=== PATIENT | female | born 1955 | race American Indian/Alaskan Native ===

== ENCOUNTER 2016-11-06 07:26 | Day surgery (SDC) | payer MEDICAID ==
[~2016-11-06 07:26] MED LIST: Lactated Ringers 1,000 ML IV SCH; Sodium Chloride 0.9% 10 ML Syringe FLUSH PRN; ceFAZolin 1 GM in Premix Bag 1 BAG IV ONE
[2016-11-06] MEDS ORDERED: Lidocaine 1% 30 ML SDV ONE (07:51)
[2016-11-06] MEDS ORDERED: Bupivacaine 0.5% 10 ML SDV ONE (07:51)
[2016-11-06] MEDS ORDERED: Lidocaine 1% 30 ML SDV INJECT ONE ×3 (08:30→14:46)
[2016-11-06] MEDS ORDERED: Bupivacaine 0.5% 10 ML SDV INJECT ONE ×3 (08:30→14:46)
[2016-11-06] MEDS ORDERED: Acetaminophen/oxyCODONE 325-5 MG Tab PO PRN (10:08)
--- NOTE | 2016-11-06 10:12 | PCM.OPNOTE ---
- General Post-Op/Procedure Note Date of Surgery/Procedure: 11/06/16 Operative Procedure(s): left foot 2nd and 3rd digit PIPJ arthrodesis with pinning Pre Op Diagnosis: left foot painful hammertoes 2nd and 3rd digits Post-Op Diagnosis: kan Anesthesia Technique: Local, MAC Primary Surgeon: Piper Winters Yadav Anesthesia Provider: Denise Bright EBL in mLs: 5 Complications: none Condition: Good Free Text/Narrative:: Pt tolerated procedure well and was transported to pacu with vss and vascular status intact to left foot as noted by hyperemia to digits upon deflation of tourniquet. TT 78 mins. 0.062 inch k wires to toes 2 and 3. Well padded dressing applied.
[2016-11-06 11:13] VITALS: BP 112/46
[2016-11-06] MEDS ORDERED: Lidocaine 2% 20 ML MDV INJECT ONE (11:39)
[2016-11-06] MEDS ORDERED: fentaNYL 100 MCG/2 ML SDV IV ONE (11:39)
[2016-11-06] MEDS ORDERED: Ondansetron 4 MG/2 ML SDV IV ONE (11:39)
[2016-11-06] MEDS ORDERED: Propofol 200 MG/20 ML SDV IV ONE (11:39)
[2016-11-06] MEDS ORDERED: Midazolam 1 MG/ML 2 ML SDV IV ONE (11:39)
[2016-11-06] MEDS ORDERED: Ketorolac 30 MG/ML SDV IVPUSH ONE (11:39)
--- NOTE | 2016-11-06 14:22 | OR ---
DATE: 11/06/2016 PREOPERATIVE DIAGNOSIS: Left foot painful hammertoes of the 2nd and 3rd digits. POSTOPERATIVE DIAGNOSIS: Left foot painful hammertoes of the 2nd and 3rd digits. PROCEDURE PERFORMED: Left foot 2nd and 3rd digits proximal interphalangeal joint arthrodesis with pinning. ANESTHESIA: Local MAC with preoperative local block of 10 mL 1:1 mixture 1% lidocaine plain and 0.5% Marcaine plain. TOURNIQUET TIME: 78 minutes, pneumatic ankle tourniquet. ESTIMATED BLOOD LOSS: Minimal. SPECIMEN: None. COMPLICATIONS: None. INDICATIONS: Tika is a 61-year-old female, who presents for left foot pain. I have been seeing her every few months for the pain to the left 2nd and 3rd toes. She states the pain is worse when her feet are cold or when she is walking or standing. She had surgery on her toes few years back at a different clinic and they are now starting to become painful again. She would like to do a second surgery on these toes to fix them. The pain is nonradiating at the top of her foot, the 2nd and 3rd toes, and they are swollen. She rates the pain at 7/10 at worst. X-rays, 3-views of the left foot, reveals arthroplasty of the distal ends of the proximal phalanx 2 and 3, no signs of fracture. The patient voiced good understanding of proposed procedure and possible complications, and elects to have surgery at this time. DESCRIPTION OF PROCEDURE: The patient was taken to the operating room, lying in the supine position. After adequate anesthesia induction as described above, the left foot was prepped and draped in usual sterile fashion. A pneumatic ankle tourniquet was inflated to 225 mmHg. Attention was then directed to the dorsal aspect of the 2nd and 3rd digits, where a linear incision was made, centered dorsally over the proximal interphalangeal joint. Sharp and blunt dissection was performed down to the level of the extensor tendons. A transverse tenotomy capsulotomy of the proximal interphalangeal joints of the 2nd and 3rd digits were made. The extensor tendon was reflected proximally and the soft tissue removed sharply to expose the head of the proximal phalanx. It was noted that there was some fibrosis in this area from her prior surgeries that was cleaned out. A sagittal saw was then used to shape the head of the proximal phalanx in a cone fashion to remove the articular surface. A bur was used to create a cup in the base of the intermediate phalanx. At this time, a 0.062 inch K-wire was inserted from proximal to distal, exiting the digit distally. The digit was then placed in a straight alignment and the K-wire was retrograded through the proximal phalanx. The digits were noted to be near anatomic alignment at this time. Fluoroscopy was used to verify adequate fixation with the K-wires and also proper positioning of the toes. This was done on both the 2nd and 3rd digits. All areas were then irrigated with copious amounts of sterile saline. The tendons were repaired with 3-0 Vicryl and skin closure was completed with 4-0 nylon. The foot was then dressed with Xeroform to the incision sites, fluffs, Webril, and Nate wrap. The patient tolerated the procedure well and left the operating room for recovery with vital signs stable and in good condition with vascular status intact to the left foot as noted by immediate hyperemia to all digits upon deflation of the ankle tourniquet. Tourniquet time was 78 minutes. She will be placed in a boot and crutches, nonweightbearing. She was discharged home when she met hospital discharge requirements. [facility] /[id number]
== END 2016-11-06 11:30 | disposition home or self-care (01) ==
LOC: DL.SDS 07:26
PROVIDERS: ATTEND Podiatrist
DX: M20.42 Other hammer toe(s) (acquired), left foot (principal); D64.9 Anemia, unspecified; Z88.1 Allergy status to other antibiotic agents; Z90.710 Acquired absence of both cervix and uterus; Z98.890 Other specified postprocedural states; Z79.899 Other long term (current) drug therapy
CPT/HCPCS: 26860; 26861; J0690; J7120; J1885; J2250; J2405; J2704; J3010

== ENCOUNTER 2018-12-02 07:06 | Day surgery (SDC) | payer MEDICAID ==
[~2018-12-02 07:06] MED LIST changes: +Bupivacaine 0.5% 30 ML SDV ONE; -Lactated Ringers 1,000 ML IV SCH; +Lidocaine 1% 30 ML SDV ONE; -Sodium Chloride 0.9% 10 ML Syringe FLUSH PRN; -ceFAZolin 1 GM in Premix Bag 1 BAG IV ONE
[2018-12-02] MEDS ORDERED: Bupivacaine 0.5% 30 ML SDV INJECT ONE ×4 (07:07→09:37)
[2018-12-02] MEDS ORDERED: Ketorolac 30 MG/ML SDV IVPUSH ONE (07:07)
[2018-12-02] MEDS ORDERED: Ondansetron 4 MG/2 ML SDV IV ONE (07:07)
[2018-12-02] MEDS ORDERED: Lidocaine 1% 30 ML SDV INJECT ONE ×4 (07:07→09:37)
[2018-12-02] MEDS ORDERED: Midazolam 1 MG/ML 2 ML SDV IV ONE (07:07)
[2018-12-02] MEDS ORDERED: Propofol 200 MG/20 ML SDV IV ONE (07:07)
[2018-12-02] MEDS ORDERED: fentaNYL 100 MCG/2 ML SDV IV ONE (07:07)
[2018-12-02] MEDS ORDERED: Sodium Chloride 0.9% 10 ML Syringe FLUSH PRN ×2 (08:00)
[2018-12-02] MEDS ORDERED: Lactated Ringers 1,000 ML IV SCH (08:00)
[2018-12-02] MEDS ORDERED: ceFAZolin 1 GM in Premix Bag 1 BAG IV ONE (08:00)
[2018-12-02] MEDS ORDERED: Acetaminophen/oxyCODONE 325-5 MG Tab PO PRN (10:14)
--- NOTE | 2018-12-02 10:20 | PCM.OPNOTE ---
- General Post-Op/Procedure Note Date of Surgery/Procedure: 12/02/18 Operative Procedure(s): left foot 4th toe hammertoe arthrodesis with smart toe implant, extensor tendon lengthening digits 2 and 3. Pre Op Diagnosis: left foot painful hammertoe 4, dorsiflexed digits 2 and 3. Post-Op Diagnosis: kan Anesthesia Technique: Local, MAC Primary Surgeon: Piper Yadav Anesthesia Provider: Gorge Davidson EBL in mLs: 5 Complications: none Condition: Good Free Text/Narrative:: Pt tolerated procedure well and was transported to recovery with vascular status intact to left foot. smart toe size 14 10 degree was implanted to 4th toe. Well padded compression dressing applied.
[2018-12-02 12:09] VITALS: BP 83/42; PULSE 70
--- NOTE | 2018-12-03 17:14 | OR ---
DATE: 12/02/2018 PREOPERATIVE DIAGNOSES: 1. Left foot 4th digit hammertoe. 2. Left foot 2nd and 3rd digit dorsiflexed digits. POSTOPERATIVE DIAGNOSES: 1. Left foot 4th digit hammertoe. 2. Left foot 2nd and 3rd digit dorsiflexed digits. PROCEDURE PERFORMED: 1. Left foot 4th digit proximal interphalangeal joint arthrodesis with Smart Toe implant. 2. 2nd and 3rd digit extensor tendon lengthening, left foot ANESTHESIA: Local MAC with preoperative local block of 10 mL of 1:1 mixture of 1% lidocaine plain and 0.5% Marcaine plain. ESTIMATED BLOOD LOSS: Minimal. SPECIMEN: None. COMPLICATIONS: None. INDICATIONS: Tika is a 63-year-old female, who presents with a painful 4th hammertoe. She has history of hammertoe corrections of her 2nd and 3rd toes, which are slightly tight, these do not bother her, but the 4th toe now under- rides her other toes and starting to curve inwards. This bothers her whenever she is walking on her shoes. We have tried multiple different toe spacers and cushions with no relief. X-rays of the left foot reveals 2nd and 3rd digit hammertoe correction, 4th digit hammertoe/adductovarus digit. The patient voiced good understanding of proposed procedure and possible complications and elects to have surgery at this time. DESCRIPTION OF PROCEDURE: The patient was taken to the operating room lying in supine position. After adequate anesthesia induction as described above, the left foot was prepped and draped in the usual sterile fashion. A pneumatic ankle tourniquet was inflated to 225 mmHg. Attention was then directed to the dorsal aspect of the left foot overlying the 4th digit proximal interphalangeal joint where a 2 cm linear incision was made overlying the joint. Sharp and blunt dissection was performed down to the level of the joint. A tenotomy capsulotomy was made with a #15 blade and the head of the proximal phalanx was exposed. A sagittal saw was used to remove the proximal phalanx head. It was then also used to remove the base of the middle phalanx. The toe was noted to be in rectus position with good alignment of the joint, a Smart Toe implant size 14, 10-degree angle was then inserted across the proximal interphalangeal joint for arthrodesis. Fluoroscopy was used to verify proper positioning of the implant and also of the joint. Good compression was noted. The toe was noted to be in a rectus alignment at this time. The 2nd and 3rd digits were slightly dorsiflexed, and so at this time attention was directed to the 2nd and 3rd extensor tendons, there was a 2 cm linear incision made overlying each tendon. Sharp and blunt dissection was performed down to the level of extensor tendon of both 2nd and 3rd digits. A Z-lengthening was performed on both tendons and the 2nd and 3rd toes were noted to be in a good alignment with good position of the tendons. The tendons were fixated with 3-0 Vicryl. All areas were irrigated with copious amounts of sterile saline. Deep closure was completed with 3-0 Vicryl and skin closure was completed with 4-0 nylon. The area was then dressed with Xeroform to the incision site, fluffs, Webril, and an Nate wrap. She will be nonweightbearing. The patient tolerated anesthesia and procedure well, was transferred to recovery room with vital signs stable in good condition with vascular status intact as noted by immediate hyperemia to all digits upon deflation of the ankle tourniquet. She was then discharged home when she met hospital discharge requirements. [facility] /[id number] RENE
== END 2018-12-02 12:16 | disposition home or self-care (01) ==
LOC: DL.SDS 07:06
PROVIDERS: ATTEND Podiatrist
DX: M20.42 Other hammer toe(s) (acquired), left foot (principal); M21.272 Flexion deformity, left ankle and toes; Z88.1 Allergy status to other antibiotic agents
CPT/HCPCS: 28285; 28313; C1776; J0690; J1885; J2001; J2250; J2405; J2704; J3010; J3490; J7120

== ENCOUNTER 2019-06-20 17:09 | Emergency (ER) | payer MEDICAID ==
[2019-06-20] MEDS ORDERED: Ondansetron 4 MG/2 ML SDV IV ONE (17:18)
[2019-06-20] MEDS ORDERED: Sodium Chloride 0.9% 1,000 ML IV ONE (17:18)
[2019-06-20] MEDS ORDERED: HYDROmorphone 1 MG/ML Syringe IVPUSH ONE (17:18)
[2019-06-20] MEDS ORDERED: Sodium Chloride 0.9% 10 ML Syringe FLUSH PRN (17:18)
[2019-06-20] MEDS ORDERED: Piperacillin/Tazobactam 3.375 GM in Sodium Chloride 0.9% 100 ML IV ONE (17:19)
[2019-06-20 17:22] VITALS: BP 104/51; PULSE 95
--- NOTE | 2019-06-20 18:36 | EDM.PDOC ---
Scribed by Kassy Mccann 06/20/19 [id number] for Richard Johnson MD ED HPI GENERAL MEDICAL PROBLEM - General Chief Complaint: Abdominal Pain Stated Complaint: ADOMINAL PAIN ON THE RIGHT SIDE Time Seen by Provider: 06/20/19 17:15 Source of Information: Reports: Patient, Provider (Yannick Powers NP), RN, RN Notes Reviewed History Limitations: Reports: No Limitations - History of Present Illness INITIAL COMMENTS - FREE TEXT/NARRATIVE: Patient sent to ER from [facility] by Yannick Powers NP for a gallbladder evaluation due to abdominal pain at the RUQ for couple of days. Pt admits to some on/off RUQ pain or discomfort for a couple of weeks. She states threw up bile looking (yellow material) yesterday. Patient states no problems with gallbladder in past that she is aware of. Denies dysuria, diarrhea, or constipation. Yannick Powers NP called from clinic to report that she believes the pt has a "hot gallbladder" based on Hx, exam, WBC elev. to 13.65, T-bili 1.1 with RUQ pain w/ nausea and vomiting. The clinic did not have US available. Yannick Shall states she called [facility] for a direct admission/transfer but it was determined that the pt should be worked up in the ER then transferred if needed. Onset: Gradual Duration: Constant Location: Reports: Abdomen Quality: Reports: Ache Severity: Moderate Improves with: Reports: None Worsens with: Reports: None Associated Symptoms: Reports: No Other Symptoms Abdominal Pain Score (Numeric/FACES): 8 - Related Data Allergies Allergy/AdvReac Type Severity Reaction Status Date / Time clindamycin Allergy Cannot Verified 06/20/19 17:22 Remember Home Meds: Home Meds Cyanocobalamin (Vitamin B-12) [Cyanocobalamin Injection] 1,000 mcg INJECT .[id number] 11/05/16 [History] oxyCODONE HCl/Acetaminophen [Percocet 10-325 mg Tablet] 1 tab PO Q8H 11/05/16 [ History] Ciclopirox/Ure/Camph/Menth/Euc [Ciclopirox 8% Treatment Kit] 1 applic TOP ASDIRECTED 12/01/18 [History] Clotrimazole/Betamethasone Dip [Lotrisone Cream] 1 applic TOP ASDIRECTED [History] Gabapentin [Neurontin] 300 - 600 mg PO DAILY PRN 12/01/18 [History] Past Medical History - Past Health History Medical/Surgical History: Denies Medical/Surgical History HEENT History: Reports: Impaired Vision, Other (See Below) (dental abscess) Cardiovascular History: Reports: None Respiratory History: Reports: Sleep Apnea Gastrointestinal History: Reports: Diverticulosis, GERD, GI Bleed, Hemorrhoids, Hiatal Hernia, Other (See Below) Other Gastrointestinal History: DIVERTICULITIS Genitourinary History: Reports: None [employer] History: Reports: Musculoskeletal History: Reports: None Neurological History: Reports: None Psychiatric History: Reports: None Endocrine/Metabolic History: Reports: Hypothyroidism Hematologic History: Reports: Anemia, B12 Deficiency Immunologic History: Reports: None Oncologic (Cancer) History: Reports: None Dermatologic History: Reports: None - Infectious Disease History Infectious Disease History: Reports: Chicken Pox - Past Surgical History Head Surgeries/Procedures: Reports: None HEENT Surgical History: Reports: None Cardiovascular Surgical History: Reports: None Respiratory Surgical History: Reports: None GI Surgical History: Reports: Colonoscopy, EGD Female Surgical History: Reports: Section, D&C, Hysterectomy Endocrine Surgical History: Reports: None Neurological Surgical History: Reports: None Musculoskeletal Surgical History: Reports: Other (See Below) Other Musculoskeletal Surgeries/Procedures:: toe surg. LEFT FOOT REVISIONAL 2 & 3 AND, PROXIMAL INTERPHALANGEAL JOINT ARTHRODESIS WITH PINNING Oncologic Surgical History: Reports: None Dermatological Surgical History: Reports: None Social & Family History - Family History Family Medical History: Noncontributory HEENT: Reports: Cataract Cardiac: Reports: None Respiratory: Reports: None GI: Reports: None : Reports: Nephritic Syndrome OBGYN: Reports: None Musculoskeletal: Reports: Arthritis Neurological: Reports: None Psychiatric: Reports: Bipolar Endocrine/Metabolic: Reports: Diabetes, type II Hematologic: Reports: B12 Deficiency Immunologic: Reports: None Dermatologic: Reports: None - Caffeine Use Caffeine Use: Reports: Coffee, Soda, Tea Other Caffeine Use: AVERAGE OF 1 CUP COFFEE DAILY. AVERAGE OF 2 CANS OF COCOA COLA DAILY - Living Situation & Occupation Living situation: Reports: with Family ED ROS GENERAL - Review of Systems Review Of Systems: ROS reveals no pertinent complaints other than HPI. ED EXAM, GI/ABD - Physical Exam Exam: See Below Exam Limited By: No Limitations General Appearance: Alert, WD/WN, No Apparent Distress, Thin Eyes: Bilateral: Normal Appearance (No scleral icterus) Nose: Normal Inspection Throat/Mouth: Normal Voice, No Airway Compromise Head: Atraumatic, Normocephalic Neck: Normal Inspection Respiratory/Chest: No Respiratory Distress, Lungs Clear, Normal Breath Sounds, No Accessory Muscle Use, Chest Non-Tender Cardiovascular: Regular Rate, Rhythm, No Edema GI/Abdominal Exam: Normal Bowel Sounds, Soft, No Distention, Tender (RUQ). No: Guarding, Rigid, Rebound Back Exam: Normal Inspection. No: CVA Tenderness (L), CVA Tenderness (R) Extremities: Normal Inspection Neurological: Alert, Oriented, CN II-XII Intact, Normal Cognition, No Motor/ Sensory Deficits Psychiatric: Normal Mood Course - Vital Signs Last Recorded V/S: Last Vital Signs Temp 98.2 F 06/20/19 17:17 Pulse 95 06/20/19 17:17 Resp 16 06/20/19 17:17 BP 104/51 L 06/20/19 17:17 Pulse Ox 100 06/20/19 17:17 - Orders/Labs/Meds Orders: Active Orders 24 hr Category Date Time Status Peripheral IV Care [RC] . DIRECTED Care 06/20/19 17:19 Active Abdomen Ltd [US] Stat Exams 06/20/19 17:22 Ordered Sodium Chloride 0.9% [Saline Flush] Med 06/20/19 17:18 Active 10 ml FLUSH ASDIRECTED PRN Peripheral IV Insertion Adult [OM.PC] Stat Oth 06/20/19 17:18 Ordered Medication Orders Sodium Chloride (Saline Flush) 10 ml FLUSH ASDIRECTED PRN PRN Reason: Keep Vein Open Last Admin: 06/20/19 17:49 Dose: 10 ml Meds: Medications Generic Name Dose Route Start Last Admin Trade Name Freq PRN Reason Stop Dose Admin Sodium Chloride 10 ml 06/20/19 17:18 06/20/19 17:49 Saline Flush FLUSH 10 ml ASDIRECTED PRN Administration Keep Vein Open Discontinued Medications Generic Name Dose Route Start Last Admin Trade Name Freq PRN Reason Stop Dose Admin Hydromorphone HCl 0.5 mg 06/20/19 17:18 06/20/19 17:52 Dilaudid IVPUSH 06/20/19 17:19 0.5 mg ONETIME ONE Administration Piperacillin Sod/Tazobactam 100 mls @ 200 mls/hr 06/20/19 17:19 06/20/19 17: 53 Sod 3.375 gm/ Sodium Chloride IV 06/20/19 17:48 200 mls/hr ONETIME ONE Administration Sodium Chloride 1,000 mls @ 999 mls/hr 06/20/19 17:18 06/20/19 17:48 Normal Saline IV 06/20/19 18:18 999 mls/hr .BOLUS ONE Administration Ondansetron HCl 4 mg 06/20/19 17:18 06/20/19 17:49 Zofran IV 06/20/19 17:19 4 mg ONETIME ONE Administration - Radiology Interpretation Free Text/Narrative:: US Tech report: thickened GB wall with pericholeic fluid consistent with cholecystitis. Departure - Departure Time of Disposition: 18:35 Disposition: DC/Tfer to [facility] 02 Condition: Serious Clinical Impression: Cholecystitis - Discharge Information *PRESCRIPTION DRUG MONITORING PROGRAM REVIEWED*: No *COPY OF PRESCRIPTION DRUG MONITORING REPORT IN PATIENT MARISEL: No Forms: ED Department Discharge, Interfacility Transfer EMTALA - My Orders Last 24 Hours: My Active Orders 06/20/19 17:18 Sodium Chloride 0.9% [Saline Flush] 10 ml FLUSH ASDIRECTED PRN Peripheral IV Insertion Adult [OM.PC] Stat 06/20/19 17:19 Peripheral IV Care [RC] . DIRECTED 06/20/19 17:22 Abdomen Ltd [US] Stat - Assessment/Plan Last 24 Hours: My Active Orders 06/20/19 17:18 Sodium Chloride 0.9% [Saline Flush] 10 ml FLUSH ASDIRECTED PRN Peripheral IV Insertion Adult [OM.PC] Stat 06/20/19 17:19 Peripheral IV Care [RC] . DIRECTED 06/20/19 17:22 Abdomen Ltd [US] Stat I have read and agree with the documentation that has been completed regarding this visit. By signing this record, I attest that the documentation was completed in my physical presence and is an accurate record of the encounter.
== END 2019-06-20 19:13 ==
LOC: DL.ED 17:09
DX: K81.9 Cholecystitis, unspecified (principal); Z88.1 Allergy status to other antibiotic agents
CPT/HCPCS: 76705; 96361; 96365; 96375; 99285; J1170; J2405; J2543; J7030; J7050

== ENCOUNTER 2021-03-04 17:20 | Emergency (ER) | payer MEDICAID ==
[2021-03-04 17:53] VITALS: BP 99/53; PULSE 66
--- NOTE | 2021-03-04 18:10 | EDM.PDOC ---
<Catherine Aviles - Last Filed: 03/05/21 05:41> ED HPI GENERAL MEDICAL PROBLEM - General Chief Complaint: Abdominal Pain Stated Complaint: PAIN IN LEFT SIDE / PER BARATH Time Seen by Provider: 03/04/21 18:09 - Related Data Allergies Allergy/AdvReac Type Severity Reaction Status Date / Time clindamycin Allergy Cannot Verified 03/04/21 17:43 Remember Home Meds: Home Meds Cyanocobalamin (Vitamin B-12) [Cyanocobalamin Injection] 1,000 mcg INJECT .[id number] 11/05/16 [History] Gabapentin [Neurontin] 300 - 600 mg PO DAILY PRN 12/01/18 [History] Course - Re-Assessments/Exams Free Text/Narrative Re-Assessment/Exam: 03/05/21 05:37 Left AMA while awaiting lab results Departure - Departure Time of Disposition: 20:50 Disposition: Against Medical Advice 07 Condition: Undetermined Clinical Impression: Methamphetamine abuse, LUQ pain UTI (urinary tract infection) Qualifiers: Urinary tract infection type: acute cystitis Hematuria presence: without hematuria Qualified Code(s): N30.00 - Acute cystitis without hematuria - Discharge Information *PRESCRIPTION DRUG MONITORING PROGRAM REVIEWED*: No *COPY OF PRESCRIPTION DRUG MONITORING REPORT IN PATIENT MARISEL: No Referrals: PCP,None [Primary Care Provider] - Forms: ED Department Discharge <Sonali Valdez - Last Filed: 03/05/21 09:27> ED HPI GENERAL MEDICAL PROBLEM - General Source of Information: Reports: Patient, Provider (Dr. Duenas), RN, RN Notes Reviewed History Limitations: Reports: No Limitations - History of Present Illness INITIAL COMMENTS - FREE TEXT/NARRATIVE: Tika is a 66 y/o female who presents to the ED from her primary care facility, at the request of Dr. Zelaya, for complaints of LUQ pain. The patient reports her pain began five days ago; she notes it was the worst two days ago, but has somewhat improved. She notes the pain causes her to feel short of breath, at times. The patient received her first COVID vaccine six days ago and is concerned there is a correlation. She denies fever, shaking chills, chest pain, palpitations, nausea, vomiting, dysuria, hematuria, melena, or hematochezia. Her last bowel movement was last night. Her last meal was this morning. She has not taken any medications for her pains. 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: Musculoskeletal History: Reports: None Neurological History: Reports: None Psychiatric History: Reports: None Endocrine/Metabolic History: Reports: Hypothyroidism Hematologic History: Reports: Anemia, B12 Deficiency Immunologic History: Reports: None Oncologic (Cancer) History: Reports: None Dermatologic History: Reports: None - Infectious Disease History Infectious Disease History: Reports: Chicken Pox - Past Surgical History Head Surgeries/Procedures: Reports: None HEENT Surgical History: Reports: None Cardiovascular Surgical History: Reports: None Respiratory Surgical History: Reports: None GI Surgical History: Reports: Colonoscopy, EGD Female Surgical History: Reports: Section, D&C, Hysterectomy Endocrine Surgical History: Reports: None Neurological Surgical History: Reports: None Musculoskeletal Surgical History: Reports: Other (See Below) Other Musculoskeletal Surgeries/Procedures:: toe surg. LEFT FOOT REVISIONAL 2 & 3 AND, PROXIMAL INTERPHALANGEAL JOINT ARTHRODESIS WITH PINNING Oncologic Surgical History: Reports: None Dermatological Surgical History: Reports: None Social & Family History - Family History Family Medical History: No Pertinent Family History HEENT: Reports: Cataract Cardiac: Reports: None Respiratory: Reports: None GI: Reports: None : Reports: Nephritic Syndrome OBGYN: Reports: None Musculoskeletal: Reports: Arthritis Neurological: Reports: None Psychiatric: Reports: Bipolar Endocrine/Metabolic: Reports: Diabetes, type II Hematologic: Reports: B12 Deficiency Immunologic: Reports: None Dermatologic: Reports: None - Caffeine Use Caffeine Use: Reports: Coffee, Soda, Tea Other Caffeine Use: AVERAGE OF 1 CUP COFFEE DAILY. AVERAGE OF 2 CANS OF COCOA COLA DAILY - Living Situation & Occupation Living situation: Reports: with Family ED ROS GENERAL - Review of Systems Review Of Systems: Comprehensive ROS is negative, except as noted in HPI. ED EXAM, GI/ABD - Physical Exam Exam: See Below Exam Limited By: No Limitations General Appearance: Alert, No Apparent Distress Eyes: Bilateral: Normal Appearance, EOMI Ears: Normal External Exam, Hearing Grossly Normal Nose: Normal Inspection, Normal Mucosa, No Blood Throat/Mouth: Normal Inspection, Normal Lips, Normal Teeth, Normal Gums, Normal Oropharynx, Normal Voice, No Airway Compromise Head: Atraumatic, Normocephalic Neck: Normal Inspection, Supple, Non-Tender, Full Range of Motion Respiratory/Chest: No Respiratory Distress, Lungs Clear, Normal Breath Sounds, No Accessory Muscle Use, Chest Non-Tender Cardiovascular: Normal Peripheral Pulses, Regular Rate, Rhythm, No Edema, No Gallop, No JVD, No Murmur, No Rub GI/Abdominal Exam: Soft, No Distention, No Abnormal Bruit, No Mass, Pelvis Stable, Tender (To LUQ ), Abnormal Bowel Sounds (Hypoactive bowel sounds) (Female) Exam: Deferred Rectal (Female) Exam: Deferred Back Exam: Normal Inspection, Full Range of Motion Extremities: Normal Inspection, Normal Range of Motion, Non-Tender, No Pedal Edema, Normal Capillary Refill Neurological: Alert, Oriented, CN II-XII Intact, Normal Cognition, Normal Gait, No Motor/Sensory Deficits Psychiatric: Normal Affect, Normal Mood Skin Exam: Warm, Dry, Intact, Normal Color, No Rash. No: Cyanosis, Ecchymosis, Erythema, Jaundice, Mottled, Pallor, Petechiae Course - Vital Signs Last Recorded V/S: Last Vital Signs Temp 97.5 F 03/04/21 17:52 Pulse 66 03/04/21 17:52 Resp 16 03/04/21 17:52 BP 99/53 L 03/04/21 17:52 Pulse Ox 99 03/04/21 17:52 - Orders/Labs/Meds Orders: Active Orders 24 hr Category Date Time Status CULTURE URINE [RM] Stat Lab 03/04/21 20:45 Results Labs: Laboratory Tests 03/04/21 03/04/21 03/04/21 Range/Units 18:21 18:21 20:45 WBC 9.0 (5.0-10.0) 10^3/uL RBC 4.85 (4.2-5.4) 10^6/uL Hgb 14.3 (12.0-16.0) g/dL Hct 43.1 (37.0-47.0) % MCV 88.9 (80-100) fL MCH 29.5 (27.0-34.0) pg MCHC 33.2 (33.0-35.0) g/dL Plt Count 270 (150-450) 10^3/uL Neut % (Auto) 58.6 (42.2-75.2) % Lymph % (Auto) 25.3 (20.5-50.1) % [place] % (Auto) 12.3 H (2-8) % Eos % (Auto) 3.6 H (1.0-3.0) % Baso % (Auto) 0.2 (0.0-1.0) % Sodium 142 (136-145) mmol/L Potassium 3.4 L (3.5-5.1) mmol/L Chloride 106 (98-107) mmol/L Carbon Dioxide 27 (21-32) mmol/L Anion Gap 12.4 (7-13) mEq/L BUN 8 (7-18) mg/dL Creatinine 0.75 (0.55-1.02) mg/dL Est Cr Clr Drug Dosing TNP Estimated GFR (MDRD) > 60 BUN/Creatinine Ratio 10.7 (No establ ref range) Glucose 96 (70-99) mg/dL Calcium 8.0 L (8.5-10.1) mg/dL Magnesium 2.0 (1.8-2.4) mg/dL Total Bilirubin 0.8 (0.2-1.0) mg/dL AST 19 (15-37) U/L ALT 33 (14-59) U/L Alkaline Phosphatase 131 H (46-116) U/L C-Reactive Protein < 0.2 (0.0-0.9) mg/dL B-Natriuretic Peptide 26 (0-100) pg/ml Total Protein 6.4 (6.4-8.2) g/dL Albumin 3.0 L (3.4-5.0) g/dL Globulin 3.4 Albumin/Globulin Ratio 0.88 Amylase 47 (25-115) U/L Lipase 77 (73-393) U/L Urine Color Yellow (YELLOW) Urine Appearance Turbid (CLEAR) Urine pH 6.0 (5.0-9.0) Ur Specific [place] 1.015 (1.005-1.030) Urine Protein Negative (NEGATIVE) Urine Glucose (UA) Negative (NEGATIVE) Urine Ketones Negative (NEGATIVE) Urine Occult Blood Negative (NEGATIVE) Urine Nitrite Positive H (NEGATIVE) Urine Bilirubin Negative (NEGATIVE) Urine Urobilinogen 1.0 (0.2-1.0) mg/dL Ur Leukocyte Esterase Small H (NEGATIVE) Urine RBC 0-5 /HPF Urine WBC 20-30 H (0-5/HPF) /HPF Ur Epithelial Cells Few (NOT SEEN) /HPF Amorphous Sediment Few (NOT SEEN) /HPF Urine Bacteria Many H (0-FEW/HPF) /HPF Urine Mucus Few H (NOT SEEN) /LPF Urine Opiates Screen (NEGATIVE) Ur Oxycodone Screen (NEGATIVE) Urine Methadone Screen (NEGATIVE) Ur Barbiturates Screen (NEGATIVE) U Tricyclic Antidepress (NEGATIVE) Ur Phencyclidine Scrn (NEGATIVE) Ur Amphetamine Screen (NEGATIVE) U Methamphetamines Scrn (NEGATIVE) Urine MDMA Screen (NEGATIVE) U Benzodiazepines Scrn (NEGATIVE) Urine Cocaine Screen (NEGATIVE) U Marijuana (THC) Screen (NEGATIVE) Ethyl Alcohol < 3 (0) mg/dL 03/04/21 Range/Units 20:45 WBC (5.0-10.0) 10^3/uL RBC (4.2-5.4) 10^6/uL Hgb (12.0-16.0) g/dL Hct (37.0-47.0) % MCV (80-100) fL MCH (27.0-34.0) pg MCHC (33.0-35.0) g/dL Plt Count (150-450) 10^3/uL Neut % (Auto) (42.2-75.2) % Lymph % (Auto) (20.5-50.1) % [place] % (Auto) (2-8) % Eos % (Auto) (1.0-3.0) % Baso % (Auto) (0.0-1.0) % Sodium (136-145) mmol/L Potassium (3.5-5.1) mmol/L Chloride (98-107) mmol/L Carbon Dioxide (21-32) mmol/L Anion Gap (7-13) mEq/L BUN (7-18) mg/dL Creatinine (0.55-1.02) mg/dL Est Cr Clr Drug Dosing Estimated GFR (MDRD) BUN/Creatinine Ratio (No establ ref range) Glucose (70-99) mg/dL Calcium (8.5-10.1) mg/dL Magnesium (1.8-2.4) mg/dL Total Bilirubin (0.2-1.0) mg/dL AST (15-37) U/L ALT (14-59) U/L Alkaline Phosphatase (46-116) U/L C-Reactive Protein (0.0-0.9) mg/dL B-Natriuretic Peptide (0-100) pg/ml Total Protein (6.4-8.2) g/dL Albumin (3.4-5.0) g/dL Globulin Albumin/Globulin Ratio Amylase (25-115) U/L Lipase (73-393) U/L Urine Color (YELLOW) Urine Appearance (CLEAR) Urine pH (5.0-9.0) Ur Specific [place] (1.005-1.030) Urine Protein (NEGATIVE) Urine Glucose (UA) (NEGATIVE) Urine Ketones (NEGATIVE) Urine Occult Blood (NEGATIVE) Urine Nitrite (NEGATIVE) Urine Bilirubin (NEGATIVE) Urine Urobilinogen (0.2-1.0) mg/dL Ur Leukocyte Esterase (NEGATIVE) Urine RBC /HPF Urine WBC (0-5/HPF) /HPF Ur Epithelial Cells (NOT SEEN) /HPF Amorphous Sediment (NOT SEEN) /HPF Urine Bacteria (0-FEW/HPF) /HPF Urine Mucus (NOT SEEN) /LPF Urine Opiates Screen Negative (NEGATIVE) Ur Oxycodone Screen Negative (NEGATIVE) Urine Methadone Screen Negative (NEGATIVE) Ur Barbiturates Screen Negative (NEGATIVE) U Tricyclic Antidepress Negative (NEGATIVE) Ur Phencyclidine Scrn Negative (NEGATIVE) Ur Amphetamine Screen Positive H (NEGATIVE) U Methamphetamines Scrn Positive H (NEGATIVE) Urine MDMA Screen Negative (NEGATIVE) U Benzodiazepines Scrn Negative (NEGATIVE) Urine Cocaine Screen Negative (NEGATIVE) U Marijuana (THC) Screen Negative (NEGATIVE) Ethyl Alcohol (0) mg/dL - Re-Assessments/Exams Free Text/Narrative Re-Assessment/Exam: 03/04/21 Care of patient transferred to Catherine Aviles PA-C at 1900. Sepsis Event Note (ED) - Evaluation Sepsis Screening Result: No Definite Risk - My Orders Last 24 Hours: My Active Orders 03/04/21 20:45 CULTURE URINE [RM] Stat - Assessment/Plan Last 24 Hours: My Active Orders 03/04/21 20:45 CULTURE URINE [RM] Stat
[2021-03-04 18:44] LABS: ANION GAP 12.4 mEq/L (7-13); CHLORIDE,CL 106 mmol/L (98-107); SODIUM,NA 142 mmol/L (136-145)
[2021-03-04 20:55] LABS: AMPHETAMINES,URINE POSITIVE (NEGATIVE); BARBITURATES,URINE NEGATIVE (NEGATIVE); BENZODIAZEPINE,URINE NEGATIVE (NEGATIVE); MDMA (ECSTASY), URINE NEGATIVE (NEGATIVE); METHADONE,URINE NEGATIVE (NEGATIVE); METHAMPHETAMINES,URINE POSITIVE (NEGATIVE); OXYCODONE,URINE NEGATIVE (NEGATIVE); PHENCYCLIDINE,URINE NEGATIVE (NEGATIVE); TCA,URINE NEGATIVE (NEGATIVE)
[2021-03-04 20:56] LABS: OPIATES,URINE NEGATIVE (NEGATIVE)
== END 2021-03-04 20:50 | disposition left against medical advice (07) ==
LOC: DL.ED 17:20
DX: N30.00 Acute cystitis without hematuria (principal); F15.10 Other stimulant abuse, uncomplicated; Z88.1 Allergy status to other antibiotic agents
CPT/HCPCS: 36415; 80053; 80305-QW; 80307; 81001; 82150; 83690; 83735; 83880; 85025; 86140; 87086; 87088; 87186; 99284